=== PATIENT | female | born 1930 | race Caucasian/White ===

== ENCOUNTER 2017-02-25 12:32 | Outpatient (CLI) | payer MEDICARE ==
[~2017-02-25] VITALS: Ht 170.2 cm; Wt 64.6 kg
[2017-02-25] VITALS (35 sets, daily range): BP systolic 94–141; BP diastolic 49–82; PULSE 49–73; RESP 11–44; TEMP 97–98; O2SAT 85–100; Ht 170.2 cm; Wt 64.6 kg
[~2017-02-25 12:32] MED LIST: ASPI-557 PO; ATOR10TA64 PO; CARV3.123 PO; CLOP75TA PO; FURO20TA4 PO; LISI2.5T2 PO; NITR0.4T SL
--- NOTE | 2017-02-25 12:40 | NUR ---
Admit: the patient is assisted to ccu-1. She walks slowly with use of cane. She is accompanied by her .
[2017-02-25] MEDS ORDERED: MULT-933 PO (12:48)
[2017-02-25] MEDS ORDERED: NORMAL SALINE 1,000 ML IV SCH (13:15)
--- NOTE | 2017-02-25 13:15 | NUR ---
IV: site is started in the left wrist per x1 attempt.
[2017-02-25] MEDS ORDERED: COD1CAPS7 (13:30)
[2017-02-25 13:49] LABS: BASOPHILS % (AUTO) 0.5 % (0-2); EOSINOPHILS # (AUTO) 0.1 T/MM3 (0-0.5); EOSINOPHILS % (AUTO) 2.2 % (0-4); HCT - HEMATOCRIT 36.6 % (36-46); HGB - HEMOGLOBIN 11.8 GM/DL (12-16); IMMATURE GRANULOCYTE # (AUTO) 0.01 T/MM3 (0.00-0.03); IMMATURE GRANULOCYTE % (AUTO) 0.2 % (0.0-0.5); LYMPHOCYTES # (AUTO) 1.2 T/MM3 (1-4.8); LYMPHOCYTES % (AUTO) 19.3 % (23-45); MEAN CORPUSCULAR HGB 30.5 UUG (26-34); MEAN CORPUSCULAR HGB CONC(MCHC 32.2 GM/DL (31-37); MEAN CORPUSCULAR VOLUME 94.6 UM3 (80-100); MONOCYTES # (AUTO) 0.4 T/MM3 (0-0.8); MONOCYTES % (AUTO) 6.7 % (0-9.0); NEUTROPHILS #(AUTO)-ABSOLUTE 4.2 T/MM3 (1.8-7.7); NEUTROPHILS % (AUTO) 71.1 % (33-66); RED BLOOD COUNT 3.87 M/MM3 (4.00-5.20)
--- NOTE | 2017-02-25 13:50 | NUR ---
CM CM IN TO VISIT PATIENT, SHE IS A&O. NO FAMILY IS PRESENT IN THE ROOM. PATIENT PLANS TO DISCHARGE HOME, DENIES ANY DISCHARGE NEEDS. STATES THAT HER TAKES GOOD CARE OF HER. CM CONTACT INFORMATION PROVIDED. ISRAEL MORRISON. Addendum: 02/25/17 at 1351 by DIVYA SIMMONS RN Amended: Links added.
[2017-02-25 13:57] LABS: ANION GAP 9 MEQ/L (5-15); BUN/CREATININE RATIO 25 RATIO (6-26); CALCIUM 9.8 MG/DL (8.4-10.2); CHLORIDE 106 MEQ/L (98-107); CO2 - CARBON DIOXIDE 31 MEQ/L (22-30); GLOMERULAR FILTRATION RATE 52; GLUCOSE 106 MG/DL (65-110); POTASSIUM 3.9 MEQ/L (3.6-5); SODIUM 146 MEQ/L (134-144)
[2017-02-25] MEDS ORDERED: LIDOCAINE 1% (10mg/ml) 30ml SDV ONE (14:12)
[2017-02-25] MEDS ORDERED: HEPARIN 1,000units in NS 500ml BAG IV ONE (14:12)
[2017-02-25] MEDS ORDERED: NITROGLYCERIN 0.4 MG SUBLINGUAL TABLET SL PRN ×2 (14:15→16:30)
[2017-02-25] MEDS ORDERED: MIDAZOLAM 2mg/2ml INJECTION ONE (15:33)
[2017-02-25] MEDS ORDERED: VERAPAMIL 5mg/2ml INJECTION IV ONE (15:33)
[2017-02-25] MEDS ORDERED: FENTANYL 100mcg/2ml INJECTION ONE (15:33)
[2017-02-25] MEDS ORDERED: SALINE FLUSH 10ml SYRINGE ONE (15:34)
[2017-02-25] MEDS ORDERED: NITROGLYCERIN 50mg/10ml INJECTION IV ONE (15:34)
[2017-02-25] MEDS ORDERED: LORAZEPAM 2 MG/ML INJECTION IV PRN (16:30)
[2017-02-25] MEDS ORDERED: ONDANSETRON 4mg/2ml INJECTION IV PRN (16:30)
[2017-02-25] MEDS ORDERED: PROMETHAZINE 25 MG INJECTION IV PRN (16:30)
[2017-02-25] MEDS ORDERED: HYDROCODONE/APAP 5 mg/325 mg TABLET PO PRN (16:30)
[2017-02-25] MEDS ORDERED: MILK OF MAGNESIA 30 ML SUSP PO PRN (16:30)
[2017-02-25] MEDS ORDERED: METOCLOPRAMIDE 10mg/2ml INJECTION IV PRN (16:30)
[2017-02-25] MEDS ORDERED: ATROPINE 1 MG/ML VIAL IV PRN (16:30)
[2017-02-25] MEDS ORDERED: ACETAMINOPHEN 325 MG TABLET PO PRN (16:30)
[2017-02-25] MEDS ORDERED: MAG-AL + SIM LIQUID 30 ML UDC PO PRN (16:30)
[2017-02-25] MEDS ORDERED: BISACODYL 5 MG E.C. TABLET PO PRN (16:30)
[2017-02-25] MEDS ORDERED: BISACODYL 10 MG SUPPOSITORY RECTALLY PRN (16:30)
[2017-02-25] MEDS ORDERED: MORPHINE SULFATE 4 MG SYRINGE IV PRN ×2 (16:30)
[2017-02-25] MEDS ORDERED: LORAZEPAM 0.5 MG TABLET PO PRN (16:30)
--- NOTE | 2017-02-25 16:33 | NUR ---
Return Pt returned from Customer Service Engineer via CCU bed. Pt denies pain at this time. VSS. TR Band site intact, asymptomatic, strong pulse present.
--- NOTE | 2017-02-25 17:00 | NUR ---
Status: the patient is resting. Right radial wrist with a small amount of bloody drainage. Balloon is inflated. The patient denies pain. Shift assessment is done.
[2017-02-25] MEDS ORDERED: --POM--CARVEDILOL 3.125 MG TABLET PO SCH (17:30)
--- NOTE | 2017-02-25 18:11 | NUR ---
Nutrition: the patient is sitting up in her bed eating supper. She is encouraged to eat with her left hand due to procedure. The right hand remains on an arm board.
--- NOTE | 2017-02-25 19:15 | NUR ---
HR Pt HR noted to drop down 20's and 30's briefly (2.6 sec pause), then back up to 50's. SBP 90's to low 100's. Pt does state she has occasional dizziness for last 3 years. Yue Sargent alerted of above information. Reviewed current home meds. Coreg stopped. NS stopped after this bag. No other orders rec'd.
[2017-02-25] MEDS ORDERED: NORMAL SALINE 1,000 ML IV ONE (20:13)
[2017-02-25] MEDS ORDERED: --POM--ATORVASTATIN 10 MG TABLET PO SCH (22:00)
[2017-02-26] VITALS (12 sets, daily range): BP systolic 99–117; BP diastolic 51–64; PULSE 54–80; RESP 16–29; TEMP 98.4–98.8; O2SAT 89–93
--- NOTE | 2017-02-26 04:35 | NUR ---
Activity Pt up with assist of 1, gaitbelt and cane to BR. Pt ambulates slowly and is a bit unsteady on her feet, especially when she first stands up.
[2017-02-26 05:20] LABS: BASOPHILS % (AUTO) 0.5 % (0-2); EOSINOPHILS # (AUTO) 0.2 T/MM3 (0-0.5); EOSINOPHILS % (AUTO) 1.8 % (0-4); HCT - HEMATOCRIT 34.6 % (36-46); HGB - HEMOGLOBIN 11.1 GM/DL (12-16); IMMATURE GRANULOCYTE # (AUTO) 0.01 T/MM3 (0.00-0.03); IMMATURE GRANULOCYTE % (AUTO) 0.1 % (0.0-0.5); LYMPHOCYTES % (AUTO) 11.8 % (23-45); MEAN CORPUSCULAR HGB 30.5 UUG (26-34); MEAN CORPUSCULAR HGB CONC(MCHC 32.1 GM/DL (31-37); MEAN CORPUSCULAR VOLUME 95.1 UM3 (80-100); MEAN PLATELET VOLUME 10.3 UM3 (9.4-12.4); MONOCYTES # (AUTO) 0.5 T/MM3 (0-0.8); MONOCYTES % (AUTO) 5.4 % (0-9.0); NEUTROPHILS #(AUTO)-ABSOLUTE 6.7 T/MM3 (1.8-7.7); NEUTROPHILS % (AUTO) 80.4 % (33-66); RED BLOOD COUNT 3.64 M/MM3 (4.00-5.20); WBC - WHITE BLOOD COUNT 8.3 T/MM3 (4.5-11.0)
[2017-02-26 05:26] LABS: ANION GAP 10 MEQ/L (5-15); BUN/CREATININE RATIO 23 RATIO (6-26); CALCIUM 9.9 MG/DL (8.4-10.2); CHLORIDE 108 MEQ/L (98-107); CO2 - CARBON DIOXIDE 27 MEQ/L (22-30); GLOMERULAR FILTRATION RATE 52; GLUCOSE 103 MG/DL (65-110); SODIUM 145 MEQ/L (134-144)
--- NOTE | 2017-02-26 05:56 | NUR ---
Status Pt slept very well during night. pt denies pain, SOA, nausea. Pt right wrist dressing is CDI. Pt has strong right wrist radial pulse. Pt HR has been mostly 50's to 70's during night. Pt up with assist of 1, gaitbelt and cane during night. Pt AK CHIN. Bed alarm on, will continue to monitor.
[2017-02-26] MEDS ORDERED: CARVEDILOL 3.125 MG TABLET PO SCH (08:00)
[2017-02-26] MEDS ORDERED: --POM--CLOPIDOGREL 75 MG TABLET PO SCH (09:00)
[2017-02-26] MEDS ORDERED: --POM--FUROSEMIDE 20 MG TABLET PO SCH (09:00)
[2017-02-26] MEDS ORDERED: --POM--LISINOPRIL 2.5 MG TABLET PO SCH (09:00)
[2017-02-26] MEDS ORDERED: CLOPIDOGREL 75 MG TABLET PO SCH (09:00)
[2017-02-26] MEDS ORDERED: --POM--ASPIRIN *EC* 81mg TABLET PO SCH (09:00)
[2017-02-26] MEDS ORDERED: ASPIRIN *EC* 81mg TABLET PO SCH (09:00)
--- NOTE | 2017-02-26 09:13 | NUR ---
Activity: the patient is ambulated to the ccu exit and back to ccu-1. Some SOA is noted with exertion. She is assisted to bed and monitoring continues.
--- NOTE | 2017-02-26 10:00 | CVPROF ---
PERCUTANEOUS INTERVENTION DATE OF PROCEDURE February 25, [address] Hardeep Parker The patient is an 87-year-old lady with coronary artery disease and recent angiography showed high-grade RCA stenosis and was referred for percutaneous intervention. Informed consent was obtained after explaining the procedure and the potential risks to the patient and who agreed to proceed with the procedure. PROCEDURE 1. Right coronary artery PTCA and stent using 2.75 x 14 and 3.0 x 30 drug-eluting Resolute Integrity stents. This is a technically difficult study due to tortuosity and calcification of the RCA. TECHNIQUE She was prepped and draped in the usual sterile techniques. Conscious sedation was performed using Versed and fentanyl. 1% lidocaine was used for local anesthesia. Using modified Seldinger technique, arterial access was obtained into the right radial artery with placement of a 6-[place] arterial sheath. 5,000 units of heparin, 300 mcg of nitroglycerin, and 2.5 mg of verapamil were given through the arterial sheath. A 6-[place] [employer] right guide was advanced to the ostium of the right coronary artery. A Runthrough wire was used to cross the lesion into distal RCA. A 2.5 x 12 balloon was delivered to the mid lesion site where it was inflated up to 14 atmospheres. Next, we attempted to get a 3.0 x 30 drug-eluting Resolute Integrity stent to the lesion site. However, it would not cross the mid lesion and therefore we changed our stent for a 3.0 x 30 balloon which was delivered and inflation was performed up to 14 atmospheres. Next, we used a 2.5 x 30 balloon which was delivered distal to the previous balloon and inflated up to 14 atmospheres. Next, we advanced a 3.0 x 30 drug-eluting Resolute Integrity stent to the mid lesion site all the way to the proximal RCA and deployed by inflating the balloon to 14 atmospheres. Next, angiogram showed excellent results at this site. However, there was about 70% lesion remaining distal to the stent. Next, we used a 2.75 x 14 drug-eluting Resolute Integrity stent which was delivered to the distal lesion site where it was deployed by inflating the balloon to 14 atmospheres. Next, the angiogram showed excellent results with no residual stenosis. Also during the procedure we used two Runthrough wires for ralf wire to be able to deliver our balloon and stents to the lesion sites. IMPRESSION 1. Successful PTCA and stent of RCA using 2.75 x 14 and 3.0 x 30 drug-eluting Resolute Integrity stents. PLAN Will keep her on dual antiplatelet therapy and have her follow up in clinic. JOSÉ LUIS
--- NOTE | 2017-02-26 10:30 | NUR ---
DC: instrutctions reviewed with the patient. She is assisted with dressing. The IV site and monitors are dc.
--- NOTE | 2017-02-26 10:55 | NUR ---
Discharge: the patient is dc to home and is accompanied by her . She is sent with her dc instruction packet, home meds and belongings. She is assisted to her vehicle by RN and walks with a cane.
== END 2017-02-26 10:55 | disposition home or self-care (01) ==
LOC: CCU 12:32 → CATH 12:32
PROVIDERS: ATTEND Internal Medicine Cardiovascular Disease
DX: I25.10 Atherosclerotic heart disease of native coronary artery without angina pectoris (principal); I77.1 Stricture of artery; I70.213 Atherosclerosis of native arteries of extremities with intermittent claudication, bilateral legs; I42.9 Cardiomyopathy, unspecified; E78.2 Mixed hyperlipidemia; Z79.82 Long term (current) use of aspirin; Z79.02 Long term (current) use of antithrombotics/antiplatelets; Z79.899 Other long term (current) drug therapy
CPT/HCPCS: 36415; 80048; 85025; 93005; A9270; C1725; C1769; C1874; C1887; C1893; C9600; J1644; J2250; J3010; J3490; J7030; Q9967

== ENCOUNTER 2017-03-11 10:38 | Inpatient (IN) | payer MEDICARE ==
[~2017-03-11] VITALS: Ht 170.2 cm; Wt 66.8 kg
[2017-03-11] VITALS (28 sets, daily range): BP systolic 84–139; BP diastolic 46–73; PULSE 48–94; RESP 13–29; TEMP 97.8–98.2; O2SAT 92–100; Ht 170.2 cm; Wt 66.8 kg
[~2017-03-11 10:38] MED LIST changes: +COD1CAPS7; +MULT-933 PO
--- NOTE | 2017-03-11 10:45 | NUR ---
ADMIT PT ADMITTED TO ROOM 120 AT THIS TIME VIA WHEELCHAIR. PT REPOSITIONED SELF IN BED. FAMILY PRESENT UPON ADMIT. WILL CONTINUE TO MONITOR CLOSELY.
[2017-03-11] MEDS ORDERED: HEPARIN 1,000units in NS 500ml BAG IV ONE (11:20)
[2017-03-11] MEDS ORDERED: LIDOCAINE 1% (10mg/ml) 30ml SDV ONE (11:20)
[2017-03-11] MEDS: NORMAL SALINE 1,000 ML IV SCH ×2 (11:26→20:23)
[2017-03-11 11:37] LABS: BASOPHILS % (AUTO) 0.7 % (0-2); EOSINOPHILS # (AUTO) 0.2 T/MM3 (0-0.5); EOSINOPHILS % (AUTO) 2.7 % (0-4); HCT - HEMATOCRIT 36.6 % (36-46); HGB - HEMOGLOBIN 11.6 GM/DL (12-16); IMMATURE GRANULOCYTE # (AUTO) 0.01 T/MM3 (0.00-0.03); IMMATURE GRANULOCYTE % (AUTO) 0.2 % (0.0-0.5); LYMPHOCYTES # (AUTO) 1.3 T/MM3 (1-4.8); LYMPHOCYTES % (AUTO) 21.2 % (23-45); MEAN CORPUSCULAR HGB 30.3 UUG (26-34); MEAN CORPUSCULAR HGB CONC(MCHC 31.7 GM/DL (31-37); MEAN CORPUSCULAR VOLUME 95.6 UM3 (80-100); MEAN PLATELET VOLUME 9.8 UM3 (9.4-12.4); MONOCYTES # (AUTO) 0.4 T/MM3 (0-0.8); MONOCYTES % (AUTO) 6.3 % (0-9.0); NEUTROPHILS #(AUTO)-ABSOLUTE 4.1 T/MM3 (1.8-7.7); NEUTROPHILS % (AUTO) 68.9 % (33-66); RED BLOOD COUNT 3.83 M/MM3 (4.00-5.20)
--- NOTE | 2017-03-11 11:37 | HPPDOC ---
PRINCE LI PROGRAM SUPPORT CLERK 03/11/17 1120: HPI - Adult Date DATE: 03/11/17 TIME: 11:15 General Date of Admission Date of Admission: 03/11/17 Chief Complaint: chest pain History of Present Illness Bekah is a 87 year old female who is well known to Dr. Randall with a history of CAd and stent to the RCA 2 weeks ago, cardiomyopathy and HLD who is being admitted today for left heart cath with PCI to . Past Medical History Past Medical History Metabolic: hypercholesterolemia Cardiac: CAD Musculoskeletal: osteoarthritis Surgical History Cardiac: cardiac cath, cardiac stent Current Medications Home Meds Active Scripts Multivitamin (Multi-Day Vitamins) 1 Each Tablet, 1 TAB PO DAILY, #30 TAB Prov:PADDY RANDALL MD 02/25/17 Clopidogrel Bisulfate (Plavix) 75 Mg Tablet, 75 MG PO DAILY for 30 Days, #30 TAB 11 Refills Prov:PRINCE LI PROGRAM SUPPORT CLERK 01/07/17 Reported Medications Cod Liver Oil (Cod Liver Oil) 1 Each Capsule, QD 02/25/17 Aspirin (Aspir 81) 81 Mg Tablet., 1 TAB PO DAILY, #30 TAB 5 Refills 01/06/17 Nitroglycerin (Nitrostat) 0.4 Mg Tablet, 1 TAB SL Q5MIN, #100 TAB 3 Refills 01/06/17 Furosemide (Furosemide) 20 Mg Tablet, 1 TAB PO DAILY, TAB 01/06/17 Atorvastatin Calcium (Atorvastatin Calcium) 10 Mg Tablet, 1 TAB PO HS, TAB 01/06/17 Lisinopril (Lisinopril) 2.5 Mg Tablet, 2.5 MG PO DAILY for HYPERTENSION, TAB 01/06/17 Carvedilol (Carvedilol) 3.125 Mg Tablet, 1 TAB PO BIDWM, TAB BEST WITH FOOD. 01/06/17 Allergies: Coded Allergies: Sulfa (Sulfonamide Antibiotics) (Verified Allergy, Unknown, 03/11/17) Vaccines DOESN'T DO THIS HASN'T BEEN DOING THIS FOR A LONG TIME No Social History Smoking Status: Never smoker Current Occupational Status: retired Advance Directives: No DPOA for Healthcare Only Review of Systems Constitutional: DENIES: chills, dizziness, fever, syncope, weakness Eyes General: DENIES: pain ENMT Ears: DENIES: pain Sinuses: NOT FOUND: rhinorrhea Mouth/Throat: DENIES: sore throat Cardiovascular DENIES: chest pain, dyspnea on exertion, murmur, orthopnea, paroxysmal nocturnal dysp Rhythm/Rate: DENIES: irregular beat, palpitations Vascular: DENIES: pedal edema Pulmonary Respiratory: DENIES: cough, sputum GI Upper Abdomen: DENIES: nausea, vomiting Lower Abdomen: DENIES: blood in stool, diarrhea General: DENIES: dysuria Integumentary Skin: DENIES: rash, sores Neurological General: DENIES: headache, numbness, syncope, weakness Psychiatric Psychiatric: depression (teary and states she's tired of dealing with her health problems) All Other Systems All Other Systems: Reviewed (remainder of 10-point ROS Neg.) Physical Exam General General Nourishment: well nourished, well developed, apparent age Vital Signs Vital Signs Date Time Temp Pulse Resp B/P Pulse Ox O2 Delivery O2 Flow Rate FiO2 03/11/17 11:02 98.2 54 15 124/58 95 Room Air Height (Feet): 5 Height (Inches): 7.00 Telemetry Rhythm: Sinus Bradycardia, 1st Degree HB ENMT Brief: FOUND: mucosa moist Neck Brief: NOT FOUND: JVD, carotid bruits Respiratory Brief: FOUND: clear all bryan, equal bilaterally, NOT FOUND: rales , wheezes Cardiovascular (brief) Cardiac Brief: FOUND: regular rhythm, NOT FOUND: pedal edema, regular rate ( bradycardia) Abdomen (brief) Abdominal Brief: FOUND: BS normo active x4, soft, NOT FOUND: tender Integumentary (brief) Integumentary Brief: FOUND: dry, pink, warm Neurologic RN Documented GCS Eye Opening: Verbal: Motor: Total: Psychiatric (brief) FOUND: alert, oriented Psychiatric Psychiatric General: FOUND: crying Suicide/Homicide: NOT FOUND: suicidal ideation, suicidal plan Laboratory Laboratory Tests Test 03/11/17 11:22 EKG Sinus Bradycardia, 1st degree AV block Assessment & Plan Problems: (1) Atherosclerotic heart disease of [place] coronary artery without angina pectoris Status: Chronic Qualifiers: [place] vs. transplanted heart: [place] heart Qualified Codes: I25.10 - Atherosclerotic heart disease of [place] coronary artery without angina pectoris (2) Cardiomyopathy Status: Chronic Qualifiers: Cardiomyopathy type: unspecified Qualified Codes: I42.9 - Cardiomyopathy, unspecified Assessment & Plan: continue BB, routine monitoring (3) Mixed hyperlipidemia Status: Chronic Assessment & Plan: Continue Lipitor 10mg daily Code Status Full Code Hospital Course Summary Disclaimer The hospital course summary below is not to be considered part of the above Progress Note. PADDY RANDALL MD 03/14/17 1337: Past Medical History Current Medications Home Meds Active Scripts Multivitamin (Multi-Day Vitamins) 1 Each Tablet, 1 TAB PO DAILY, #30 TAB Prov:PADDY RANDALL MD 02/25/17 Clopidogrel Bisulfate (Plavix) 75 Mg Tablet, 75 MG PO DAILY for 30 Days, #30 TAB 11 Refills Prov:PRINCE LI PROGRAM SUPPORT CLERK 01/07/17 Reported Medications Cod Liver Oil (Cod Liver Oil) 1 Each Capsule, QD 02/25/17 Aspirin (Aspir 81) 81 Mg Tablet.dr, 1 TAB PO DAILY, #30 TAB 5 Refills 01/06/17 Nitroglycerin (Nitrostat) 0.4 Mg Tablet, 1 TAB SL Q5MIN, #100 TAB 3 Refills 01/06/17 Furosemide (Furosemide) 20 Mg Tablet, 1 TAB PO DAILY, TAB 01/06/17 Atorvastatin Calcium (Atorvastatin Calcium) 10 Mg Tablet, 1 TAB PO HS, TAB 01/06/17 Lisinopril (Lisinopril) 2.5 Mg Tablet, 2.5 MG PO DAILY for HYPERTENSION, TAB 01/06/17 Carvedilol (Carvedilol) 3.125 Mg Tablet, 1 TAB PO BIDWM, TAB BEST WITH FOOD. 01/06/17 Allergies: Coded Allergies: Sulfa (Sulfonamide Antibiotics) (Verified Allergy, Unknown, 03/11/17) Assessment & Plan Hospital Course Summary Hospital Course Summary After examining the patient I agree with the above assessment. I am involved in the formulation of the patient's plan of care. PRINCE LI APRN Mar 11, 2017 11:20 PADDY RANDALL MD Mar 14, 2017 13:37
[2017-03-11] MEDS ORDERED: NITROGLYCERIN 0.4 MG SUBLINGUAL TABLET SL SCH (11:45)
[2017-03-11 11:49] LABS: ANION GAP 14 MEQ/L (5-15); BUN/CREATININE RATIO 25 RATIO (6-26); CALCIUM 9.7 MG/DL (8.4-10.2); CHLORIDE 105 MEQ/L (98-107); CO2 - CARBON DIOXIDE 27 MEQ/L (22-30); GLOMERULAR FILTRATION RATE 52; GLUCOSE 103 MG/DL (65-110); POTASSIUM 4.2 MEQ/L (3.6-5); SODIUM 146 MEQ/L (134-144)
--- NOTE | 2017-03-11 12:21 | NUR ---
CM IN TO VISIT PATIENT, SHE IS A&O. NO FAMILY IS PRESENT. PATIENT WILL DISCHARGE HOME WHERE SHE LIVES WITH HER , SHE GETS TEARY AT TIMES WHEN VISITING WITH HER. 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 WE TALKED ABOUT HER DIET QUESTIONS AND EXERCISE GUIDELINES. SHE DENIES DISCHARGE NEEDS. CM CONTACT INFORMATION GIVEN. [employer]AMI[employer] CAGE SCORE IS 3, NO FURTHER FOLLOW UP IS NEEDED. Addendum: 03/11/17 at 1225 by DIVYA SIMMONS RN Amended: Links added.
--- NOTE | 2017-03-11 12:45 | NUR ---
TO MANAGER SEMICONDUCTOR PT TRANSPORTED TO MANAGER SEMICONDUCTOR AT THIS TIME VIA CART AND ACCOMPANIED BY STAFF. PT VOIDED PRIOR TO TRANSFER. VITAL SIGNS STABLE ON ROOM AIR. INFORMED CONSENT OBTAINED. WILL CONTINUE TO MONITOR.
[2017-03-11] MEDS ORDERED: FENTANYL 100mcg/2ml INJECTION ONE (12:57)
[2017-03-11] MEDS ORDERED: MIDAZOLAM 2mg/2ml INJECTION ONE (12:57)
[2017-03-11] MEDS ORDERED: VERAPAMIL 5mg/2ml INJECTION IV ONE (12:58)
[2017-03-11] MEDS ORDERED: NITROGLYCERIN 50mg/10ml INJECTION IV ONE (12:58)
[2017-03-11] MEDS ORDERED: IOHEXOL 350mg/ml 200ml BOTTLE ONE (13:01)
[2017-03-11] MEDS ORDERED: MORPHINE SULFATE 4 MG SYRINGE IV PRN ×2 (13:30)
[2017-03-11] MEDS ORDERED: LORAZEPAM 0.5 MG TABLET PO PRN (13:30)
[2017-03-11] MEDS ORDERED: MAG-AL + SIM LIQUID 30 ML UDC PO PRN (13:30)
[2017-03-11] MEDS ORDERED: NITROGLYCERIN 0.4 MG SUBLINGUAL TABLET SL PRN (13:30)
[2017-03-11] MEDS ORDERED: HYDROCODONE/APAP 5 mg/325 mg TABLET PO PRN (13:30)
[2017-03-11] MEDS ORDERED: ACETAMINOPHEN 325 MG TABLET PO PRN (13:30)
[2017-03-11] MEDS ORDERED: LORAZEPAM 2 MG/ML INJECTION IV PRN (13:30)
[2017-03-11] MEDS ORDERED: ATROPINE 1 MG/ML VIAL IV PRN (13:30)
[2017-03-11] MEDS ORDERED: ONDANSETRON 4mg/2ml INJECTION IV PRN (13:30)
[2017-03-11] MEDS ORDERED: METOCLOPRAMIDE 10mg/2ml INJECTION IV PRN (13:30)
[2017-03-11] MEDS ORDERED: MILK OF MAGNESIA 30 ML SUSP PO PRN (13:30)
[2017-03-11] MEDS ORDERED: PROMETHAZINE 25 MG INJECTION IV PRN (13:30)
[2017-03-11] MEDS ORDERED: BISACODYL 5 MG E.C. TABLET PO PRN (13:30)
[2017-03-11] MEDS ORDERED: BISACODYL 10 MG SUPPOSITORY RECTALLY PRN (13:30)
--- NOTE | 2017-03-11 13:36 | NUR ---
RETURN PT RETURNED TO ROOM 120 AT THIS TIME VIA CART. PT TRANSFERRED SELF FROM CART TO BED. VITAL SIGN STABLE ON ROOM AIR. NO S/S OF BLEEDING NOTED FROM RIGHT WRIST. BED ALARM ON. WILL CONTINUE TO MONITOR.
--- NOTE | 2017-03-11 14:50 | CVPROF ---
DATE OF PROCEDURE March 11, [address] Hardeep Parker The patient is a pleasant 87-year-old lady with history of coronary artery disease and recent angiography showed high-grade obtuse marginal stenosis and was referred for percutaneous intervention. Informed consent was obtained after explaining the procedure and the potential risks to the patient who agreed to proceed with the procedure. PROCEDURE 1. Primary stent of the obtuse marginal using a 2.25 x 18 drug-eluting Resolute Integrity stent. TECHNIQUE She was prepped and draped in the usual sterile techniques. 1% lidocaine was used for local anesthesia. Using modified Seldinger technique, arterial access was obtained into the right radial artery with placement of a 6-[place] arterial sheath. 5,000 units of heparin, 300 mcg of nitroglycerin, and 2.5 mg of verapamil were given through the arterial sheath. Conscious sedation was performed using Versed and fentanyl. A 6-Spanish [employer] left guide was advanced to the ostium of left main. A Runthrough wire was used to cross the lesion into distal marginal. A 2.25 x 18 drug-eluting Resolute Integrity stent was delivered to the lesion site over the wire and deployed by inflating the balloon to 16 atmospheres. Next, angiogram showed excellent results with no residual stenosis. The patient tolerated the procedure well with no complications. IMPRESSION 1. Successful primary stent of obtuse marginal using a 2.25 x 18 drug-eluting Resolute Integrity stent. PLAN Will keep her on dual antiplatelet therapy at least for year and continue risk modification. [facility]
[2017-03-11 14:54] LABS: ALBUMIN 3.8 G/DL (3.5-5.0); ALBUMIN/GLOBULIN RATIO 1.4 RATIO (1.1-2.2); ALKALINE PHOSPHATASE 71 U/L (38-126); ALT (SGPT) 35 U/L (9-52); AST (SGOT) 31 U/L (14-36); TOTAL PROTEIN 6.6 G/DL (6.3-8.2)
--- NOTE | 2017-03-11 15:57 | NUR ---
BLEEDING 2CC OF AIR REMOVED FROM TR BAND AT THIS TIME AFTER SOME AIR HAD BEEN REMOVED PREVIOUSLY. MINIMAL OOZING OF BLOOD NOTED FROM RIGHT WRIST ACCESS SITE. THIS RN REINSTILLED 2CC OF AIR INTO TR BAND. NO FURTHER SIGNS OF BLEEDING NOTED. NO HEMATOMA PRESENT IN SURROUNDING TISSUES. PT'S HOB ELEVATED AND PT EATING. VITAL SIGNS REMAIN STABLE ON ROOM AIR. WILL CONTINUE TO MONITOR CLOSELY.
[2017-03-11] MEDS: --POM--CARVEDILOL 3.125 MG TABLET PO SCH (17:04)
--- NOTE | 2017-03-11 19:37 | NUR ---
DRESSING TR BAND REMOVED AT THIS TIME AFTER NO S/S OF BLEEDING NOTED AND ALL AIR REMOVED FROM RIGHT TRANSRADIAL BAND. VITAL SIGNS REMAIN STABLE ON ROOM AIR. A GAUZE/TEGADERM DRESSING APPLIED TO RIGHT WRIST AND SPLINT REMAINS IN PLACE TO RIGHT WRIST. WILL CONTINUE TO MONITOR CLOSELY.
[2017-03-11] MEDS: --POM--ATORVASTATIN 10 MG TABLET PO SCH (20:25)
[2017-03-12] VITALS (7 sets, daily range): BP systolic 103–143; BP diastolic 54–66; PULSE 53–65; RESP 16–23; TEMP 98.2–98.7; O2SAT 95–98
--- NOTE | 2017-03-12 04:08 | NUR ---
Chart Check 24 hour chart check completed
[2017-03-12 05:28] LABS: BASOPHILS % (AUTO) 0.5 % (0-2); EOSINOPHILS # (AUTO) 0.2 T/MM3 (0-0.5); EOSINOPHILS % (AUTO) 4.1 % (0-4); HCT - HEMATOCRIT 31.8 % (36-46); HGB - HEMOGLOBIN 10.2 GM/DL (12-16); IMMATURE GRANULOCYTE # (AUTO) 0.01 T/MM3 (0.00-0.03); IMMATURE GRANULOCYTE % (AUTO) 0.2 % (0.0-0.5); LYMPHOCYTES # (AUTO) 1.3 T/MM3 (1-4.8); LYMPHOCYTES % (AUTO) 21.7 % (23-45); MEAN CORPUSCULAR HGB 30.8 UUG (26-34); MEAN CORPUSCULAR HGB CONC(MCHC 32.1 GM/DL (31-37); MEAN CORPUSCULAR VOLUME 96.1 UM3 (80-100); MEAN PLATELET VOLUME 10.3 UM3 (9.4-12.4); MONOCYTES # (AUTO) 0.4 T/MM3 (0-0.8); MONOCYTES % (AUTO) 6.8 % (0-9.0); NEUTROPHILS #(AUTO)-ABSOLUTE 3.9 T/MM3 (1.8-7.7); NEUTROPHILS % (AUTO) 66.7 % (33-66); RED BLOOD COUNT 3.31 M/MM3 (4.00-5.20); WBC - WHITE BLOOD COUNT 5.8 T/MM3 (4.5-11.0)
[2017-03-12 05:45] LABS: ANION GAP 8 MEQ/L (5-15); BUN/CREATININE RATIO 26 RATIO (6-26); CALCIUM 8.7 MG/DL (8.4-10.2); CHLORIDE 110 MEQ/L (98-107); CO2 - CARBON DIOXIDE 26 MEQ/L (22-30); GLOMERULAR FILTRATION RATE 52; GLUCOSE 88 MG/DL (65-110); POTASSIUM 4.3 MEQ/L (3.6-5); SODIUM 144 MEQ/L (134-144)
--- NOTE | 2017-03-12 07:16 | NUR ---
SUMMARY ALERT AND ORIENTED X3. SEEMED TO SLEEP WELL. TR SITE TO RIGHT SIDE IS DRY AND INTACT. NO EVIDENCE OF HEMATOMA. UP WITH 1 ASSIST WITH A CANE AND GAIT BELT. UNSTEADY ON FEET. BED ALARM ON. HAS USED CALL LIGHT AND RESPONDS APPROPRIATELY. NO C/O CHEST PAIN, V.S.S.
[2017-03-12] MEDS ORDERED: ASPIRIN *EC* 81mg TABLET PO SCH (09:00)
[2017-03-12] MEDS ORDERED: CLOPIDOGREL 75 MG TABLET PO SCH (09:00)
[2017-03-12] MEDS: --POM--CLOPIDOGREL 75 MG TABLET PO SCH (09:45)
[2017-03-12] MEDS: --POM--ASPIRIN *EC* 81mg TABLET PO SCH (09:46)
[2017-03-12] MEDS: --POM--FUROSEMIDE 20 MG TABLET PO SCH (10:01)
[2017-03-12] MEDS: --POM--LISINOPRIL 2.5 MG TABLET PO SCH (10:01)
[2017-03-12] MEDS: --POM--CARVEDILOL 3.125 MG TABLET PO SCH (10:01)
[2017-03-12] MEDS: NORMAL SALINE 1,000 ML IV SCH (10:29)
--- NOTE | 2017-03-12 14:33 | NUR ---
CM CM IN TO VISIT WITH PT. HER SPOUSE IS PRESENT. PT PLANS TO DC HOME. SHE DENIES DC NEEDS. SHE IS GIVEN UPDATED CM CONTACT INFORMATION.
--- NOTE | 2017-03-12 17:15 | PNPDOC ---
PRINCE LI STRIPE MARKER 03/12/17 1715: Subjective Date DATE: 03/12/17 TIME: 17:08 Subjective Bekah is in her room on surgical, she denies cardiac complaints Objective Vital Signs Vital signs Vital Signs 03/12/17 03/12/17 03/12/17 03/12/17 05:15 07:32 07:37 12:00 Temp 98.2 98.3 98.3 Pulse 54 55 53 61 Resp 16 16 16 B/P 103/54 110/54 117/57 Pulse Ox 96 96 98 O2 Delivery Room Air Room Air Room Air Telemetry Rhythm: Sinus Bradycardia, 1st Degree HB Height (Feet): 5 Height (Inches): 7.00 Weight (Kilograms): 65.600 General Alert, Orientated x 3 ENMT (Brief) mucosa moist Neck (Brief) NOT FOUND: JVD, carotid bruits Respiratory (Brief) clear all bryan, equal bilaterally, NOT FOUND: rales, wheezes Cardiovascular (Brief) regular rate, regular rhythm, NOT FOUND: click, gallop, murmur, pedal edema, rub Abdomen (Brief) BS normo active x4, soft, NOT FOUND: tender Integumentary (Brief) dry, pink, warm Psychiatric (Brief) alert, attentive, oriented Laboratory Laboratory Laboratory Tests Test 03/11/17 11:12 03/11/17 11:22 03/12/17 04:32 Turbidity < 20 < 20 < 20 Total Bilirubin 0.60MG/DL Conjugated Bilirubin 0.00MG/DL Unconjugated Bilirubin 0.10MG/DL Icterus Index < 2 < 2 < 2 Aspartate Amino Transf (AST/SGOT) 31U/L Alanine Aminotransferase (ALT/SGPT) 35U/L Alkaline Phosphatase 71U/L Total Protein 6.6G/DL Albumin 3.8G/DL Globulin 2.8G/DL Albumin/Globulin Ratio 1.4RATIO Chemistry Specimen Hemolysis < 15 < 15 < 15 White Blood Count 6.0T/MM3 5.8T/MM3 Red Blood Count 3.83M/MM3 3.31M/MM3 Hemoglobin 11.6GM/DL 10.2GM/DL Hematocrit 36.6% 31.8% Mean Corpuscular Volume 95.6UM3 96.1UM3 Mean Corpuscular Hemoglobin 30.3UUG 30.8UUG Mean Corpuscular Hemoglobin Concent 31.7GM/DL 32.1GM/DL RDW Standard Deviation 44.0FL 44.5FL Platelet Count 267T/MM3 244T/MM3 Mean Platelet Volume 9.8UM3 10.3UM3 Immature Granulocyte % (Auto) 0.2% 0.2% Neutrophils (%) (Auto) 68.9% 66.7% Lymphocytes (%) (Auto) 21.2% 21.7% Monocytes (%) (Auto) 6.3% 6.8% Eosinophils (%) (Auto) 2.7% 4.1% Basophils (%) (Auto) 0.7% 0.5% Absolute Immature Granulocyte (auto 0.01T/MM3 0.01T/MM3 Absolute Neutrophils (auto) 4.1T/MM3 3.9T/MM3 Absolute Lymphocytes (auto) 1.3T/MM3 1.3T/MM3 Absolute Monocytes (auto) 0.4T/MM3 0.4T/MM3 Absolute Eosinophils (auto) 0.2T/MM3 0.2T/MM3 Absolute Basophils (auto) 0.0T/MM3 0.0T/MM3 Sodium Level 146MEQ/L 144MEQ/L Potassium Level 4.2MEQ/L 4.3MEQ/L Chloride Level 105MEQ/L 110MEQ/L Carbon Dioxide Level 27MEQ/L 26MEQ/L Anion Gap 14MEQ/L 8MEQ/L Blood Urea Nitrogen 25.0MG/DL 26.0MG/DL Creatinine 1.0MG/DL 1.0MG/DL Glomerular Filtration Rate Calc 52 52 BUN/Creatinine Ratio 25RATIO 26RATIO Glucose Level 103MG/DL 88MG/DL Calculated Osmolality 285MOSM/KG 281MOSM/KG Calcium Level 9.7MG/DL 8.7MG/DL Laboratory Tests 03/12/17 04:32 Laboratory Tests 03/12/17 04:32 Medications Current Medications Sodium Chloride (Normal Saline IV) 1,000 ml @ 75 mls/hr [id number] IV Last administered on 03/12/17t 10:29; Start 03/11/17 at 09:15 Heparin Sodium/ Sodium Chloride (HEPARIN 1,000units in NS 500ml) 1,000 unit STK- MED ONCE IV ; Start 03/11/17 at 11:20; Stop 03/11/17 at 11:21; Status DC Lidocaine HCl (Xylocaine 1%) 300 mg STK-MED ONCE .ROUTE ; Start 03/11/17 at 11: 20; Stop 03/11/17 at 11:21; Status DC Atorvastatin Calcium (LIPITOR 10 mg) 10 mg HS PO Last administered on t 20:25; Start 03/11/17 at 22:00 Carvedilol (Coreg) 3.125 mg BIDWM PO ; Start 03/11/17 at 17:30 Furosemide (Lasix) 20 mg DAILY PO ; Start 03/12/17 at 09:00 Lisinopril (Prinivil) 2.5 mg DAILY PO ; Start 03/12/17 at 09:00 Fentanyl (Fentanyl) 100 mcg STK-MED ONCE .ROUTE ; Start 03/11/17 at 12:57; Stop 03/11/17 at 12:58; Status DC Midazolam HCl (Versed) 2 mg STK-MED ONCE .ROUTE ; Start 03/11/17 at 12:57; Stop 03/11/17 at 12:58; Status DC Verapamil HCl (Verapamil) 5 mg STK-MED ONCE IV ; Start 03/11/17 at 12:58; Stop 03/11/17 at 12:59; Status DC Nitroglycerin (Nitroglycerin) 50 mg STK-MED ONCE IV ; Start 03/11/17 at 12:58; Stop 03/11/17 at 12:59; Status DC Heparin Sodium (Porcine) (Heparin Bolus) 10,000 unit STK-MED ONCE IV ; Start at 12:58; Stop 03/11/17 at 12:59; Status DC Iohexol (Omnipaque) 1 bottle STK-MED ONCE .ROUTE ; Start 03/11/17 at 13:01; Stop 03/11/17 at 13:02; Status DC Aspirin (Ecotrin) 81 mg DAILY PO ; Start 03/12/17 at 09:00; Status Cancel Clopidogrel Bisulfate (Plavix) 75 mg DAILY PO ; Start 03/12/17 at 09:00; Status Cancel Atropine Sulfate (ATROPINE 1mg INJ) 0.5 mg Q5M PRN IV pulse < 40 bmp AND symptomatic; Start 03/11/17 at 13:30 Acetaminophen (Tylenol Regular Strength) 325-650 mg Q5H PRN PO PAIN; Start at 13:30 Morphine Sulfate (Morphine) 2-4 mg Q5MIN PRN IV ANGINA; Start 03/11/17 at 13:30 Acetaminophen/ Hydrocodone Bitart ([place] 5/325) 1-2 tabs Q5H PRN PO PAIN; Start 03/11/17 at 13:30 Promethazine HCl (Phenergan) 12.5-25 mg Q6H PRN IV NAUSEA &/OR VOMITING; Start 03/11/17 at 13:30 Nitroglycerin (Nitrostat) 0.4 mg Q5MIN PRN SL ANGINA; Start 03/11/17 at 13:30 Magnesium Hydroxide (Mom) 30 ml DAILY PRN PO CONSTIPATION; Start 03/11/17 at 13 :30 Bisacodyl (Dulcolax) 5-10 mg DAILY PRN PO CONSTIPATION; Start 03/11/17 at 13:30 Al Hydroxide/Mg Hydroxide (Maalox) 30 ml Q3H PRN PO INDIGESTION; Start at 13:30 Lorazepam (Ativan) 0.5-1 mg Q4H PRN IV ANXIETY; Start 03/11/17 at 13:30 Metoclopramide HCl (REGLAN Inj) 5-10 mg Q6H PRN IV NAUSEA &/OR VOMITING; Start 03/11/17 at 13:30 Ondansetron HCl (Zofran) 4 mg Q6H PRN IV NAUSEA &/OR VOMITING; Start 03/11/17 at 13:30 Assessment & Plan Problems: (1) Sinus pause Status: Acute Assessment & Plan: hold betablocker, continue to monitor (2) Atherosclerotic heart disease of [place] coronary artery without angina pectoris Status: Chronic Qualifiers: [place] vs. transplanted heart: [place] heart Qualified Codes: I25.10 - Atherosclerotic heart disease of [place] coronary artery without angina pectoris (3) Cardiomyopathy Status: Chronic Qualifiers: Cardiomyopathy type: unspecified Qualified Codes: I42.9 - Cardiomyopathy, unspecified Assessment & Plan: continue BB, routine monitoring (4) Mixed hyperlipidemia Status: Chronic Assessment & Plan: Continue Lipitor 10mg daily Plan/Intensity of Service 03/12/17 Patient wishes to be a DNR. Sinus pause: hold betablocker, continue to monitor PADDY ALMAGUER MD 03/14/17 1344: Assessment & Plan Plan/Intensity of Service After examining the patient I agree with the above assessment. I am involved in the formulation of the patient's plan of care. PRINCE LI STRIPE MARKER Mar 12, 2017 17:15 PADDY ALMAGUER MD Mar 14, 2017 13:44
--- NOTE | 2017-03-12 18:20 | NUR ---
END OF SHIFT REPORT PATIENT A/OX3. ROOM AIR. VITAL SIGNS EXCEPT HR HAVE BEEN STABLE. AT TIMES PT IS AT 33 FOR HR. ROSINA IS AWARE OF THIS. PATIENT HAS BEEN HAVING 1-2 SECOND PAUSES FREQUENTLY. PATIENT CHANGED HER CODE STATUS TO DNR TODAY UNDER PRINCE LI APRN. DENIES N/V, CHEST PAIN, AND SOA. PT UP WITH ASSIST X1-2 GB AND CANE. PT UNSTEADY ON HER FEET. PT HAS TEARFUL DURING THE SHIFT AND IS FLAT AFFECTED. ADEQUATE URINARY OUTPUT. NO BM DURING THE SHIFT. WILL CONTINUE TO MONITOR.
[2017-03-12] MEDS: --POM--ATORVASTATIN 10 MG TABLET PO SCH (21:27)
[2017-03-13] MEDS: NORMAL SALINE 1,000 ML IV SCH ×2 (00:28→14:35)
[2017-03-13 01:15] LABS: LDL CHOLESTEROL,CALCULATED 93.6 (66-159); RISK FACTOR 3.4 RATIO (0-4.0); VLDL CHOLESTEROL 22.4 MG/DL (0-28)
--- NOTE | 2017-03-13 05:55 | NUR ---
SHIFT SUMMARY PATIENT IS ALERT AND ORIENTED X3 THIS SHIFT. VITAL SIGNS ARE STABLE ON ROOM AIR. PATIENT AMBULATES WELL WITH STAND BY AND CANE. PATIENT HAS ALTERNATED BETWEEN A FLAT AFFECT AND WEEPY THIS SHIFT. PATIENT DID NOT WANT TO STAY ANOTHER NIGHT, BUT SEEMS TO UNDERSTAND THE REASONING. PATIENT IS EXPECTED TO DISCHARGE TODAY. WILL CONTINUE TO MONITOR.
[2017-03-13 07:32] VITALS: BP 136/83; PULSE 61; RESP 33; TEMP 98.1; O2SAT 98
[2017-03-13] MEDS: --POM--LISINOPRIL 2.5 MG TABLET PO SCH (09:00)
[2017-03-13] MEDS: --POM--FUROSEMIDE 20 MG TABLET PO SCH (09:00)
[2017-03-13] MEDS: --POM--ASPIRIN *EC* 81mg TABLET PO SCH (09:00)
[2017-03-13] MEDS: --POM--CLOPIDOGREL 75 MG TABLET PO SCH (09:00)
--- OUTSIDE RECORDS SUMMARY | 2017-03-13 10:57 | XMS REPORT ---
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 Assessment Low back pain M54.5 Active Problem Abdominal pain, unspecified site 789.00 Active Problem Muscular wasting and disuse atrophy, 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 Problem Urinary tract infection, site not specified 599.0 Active Problem Abdominal or pelvic swelling, mass or lump, unspecified site 789.30 Active Problem Calculus of kidney 592.0 Active Assessment Shortness of breath R06.02 Active Assessment Change in bowel habit R19.4 Active Problem Other specified symptom associated with female genital organs 625.8 Active Assessment 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 Active Problem Other abnormal blood chemistry 790.6 Active Problem Microscopic hematuria 599.72 Active Problem Unspecified anemia 285.9 Active Problem Hematuria, unspecified 599.70 Active Problem Lumbago 724.2 Active Problem 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 Assessment Other fatigue R53.83 Active Problem Sciatica 724.3 Active Problem Chills (without fever) 780.64 Active Problem Other general symptoms 780.99 Active Problem Chest pain, unspecified 786.50 Active Problem Elevated blood pressure reading without diagnosis of hypertension 796.2 Active Medications Medication Code System Code Instructions Start Date End Date Status Dosage Cod Liver Oil [facility] [address]-62 Orally not defined Escitalopram Oxalate [facility] [address]-37 10 MG Orally Once a day March 12, 2016 1 tablet Glucosamine [facility] [address]-02 500 MG Orally Once a day 1 capsule with a meal Womens 50+ Multi Vitamin/Min [facility] [address] Orally not defined Procedures Procedure Coding System Code Date COMPLETE CBC W/AUTO DIFF WBC CPT-4 08001 March 12, 2016 COMPREHEN METABOLIC PANEL CPT-4 38883 March 12, 2016 ASSAY THYROID STIM HORMONE CPT-4 28142 March 12, 2016 Office Visit, Est Pt., Level 3 CPT-4 14083 March 12, 2016 URINALYSIS, AUTO, W/O SCOPE CPT-4 77614 March 12, 2016 NATRIURETIC PEPTIDE CPT-4 51548 March 12, 2016 URINE BACTERIA CULTURE CPT-4 73531 March 12, 2016 URINE CULTURE/COLONY COUNT CPT-4 71199 March 12, 2016 Vital Signs Date/Time: March 12, 2016 BMI 22.55 Index Weight 144.0 lbs Height 67 in Blood Pressure Diastolic 80 mm Hg Blood Pressure Systolic 138 mm Hg Temperature 97.8 F Cardiac Monitoring Heart Rate 73 /min Results Name Result Date Reference Range Unit Abnormality Flag Urinalysis (UA) (GM) ----PRO TRACE 20160312 ----pH 6.0 20160312 ----BLO TRACE-INTACT 20160312 ----SG 1.015 20160312 ----KET NEG 20160312 ----NIT NEG 20160312 ----COLOR YELLOW 20160312 ----URO 0.2 20160312 ----CLARITY CLOUDY 20160312 ----GLU NEG 20160312 ----DOMONIQUE 2+ 20160312 ----NILTON NEG 20160312 B TYPE NATRIURETIC PEPTIDE (BNP) ----B TYPE NATRIURETIC PEPTIDE (BNP) 28 20160312 <100 pg/mL N Summary Purpose eClinicalWorks Submission
--- OUTSIDE RECORDS SUMMARY | 2017-03-13 10:58 | XMS REPORT ---
Author Ashli Maldonado [facility] [employer] Address Unknown Phone Unavailable Care Team Providers Care Medical Technologist Name Role Phone Ashli Rizzo CP Unavailable Allergies No Known Allergies Problems Problem Type Condition ICD-9 Code Onset Dates Condition Status Problem Chills (without fever) 780.64 Active Problem Fatigue 780.79 Active Problem Other general symptoms 780.99 Active Problem Other abnormal blood chemistry 790.6 Active Problem Microscopic hematuria 599.72 Active Problem Hematuria, unspecified 599.70 Active Problem Abdominal pain, unspecified site 789.00 Active Problem 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 Problem Muscular wasting and disuse atrophy, 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 Problem Urinary tract infection, site not specified 599.0 Active Problem Lumbago 724.2 Active Problem 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 Assessment Special screening for malignant neoplasms, intestine, unspecified V76.50 Active Problem Chest pain, unspecified 786.50 Active Problem Sciatica 724.3 Active Problem Elevated blood pressure reading without diagnosis of hypertension 796.2 Active Medications No Known Medications Procedures Procedure Coding System Code Date TEST FOR BLOOD, FECES CPT-4 07414 Jan 07, 2014 Vital Signs Date/Time: Dec 22, 2013 Weight 123.8 lbs Height 67 inches Blood Pressure Diastolic 80 mm Hg Blood Pressure Systolic 136 mm Hg Temperature 97.8 F Cardiac Monitoring Heart Rate 77 Beats per Minute Results Occult Blood, Feces (GM) Result(- ) Negative Day 3(- ) 12/30/13 Day 1(- ) 12/27/13 Result(- ) Negative Day 2(- ) 12/28/13 Result(- ) Negative Summary Purpose [employer]ClinicalWorks Submission
--- OUTSIDE RECORDS SUMMARY | 2017-03-13 10:58 | XMS REPORT ---
Author Ashli Maldonado Organization [employer] Address Unknown Phone Unavailable Care Team Providers Care Tattooer Name Role Phone Ashli Rizzo CP Unavailable [...] tract infection, site not specified 599.0 Active Assessment Abdominal pain, unspecified site 789.00 Active Problem Lumbago 724.2 Active Problem 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 Assessment Hematuria, unspecified 599.70 Active Problem Chest pain, unspecified 786.50 Active Problem Sciatica 724.3 Active Problem Elevated blood pressure reading without diagnosis of hypertension 796.2 Active Medications No Known Medications Vital Signs Date/Time: Dec 22, 2013 Weight 123.8 lbs Height 67 inches Blood Pressure Diastolic 80 mm Hg Blood Pressure Systolic 136 mm Hg Temperature 97.8 F Cardiac Monitoring Heart Rate 77 Beats per Minute Results No Known Results Summary Purpose eClinicalWorks Submission
--- OUTSIDE RECORDS SUMMARY | 2017-03-13 10:58 | XMS REPORT ---
Author Ashli Maldonado [facility] [employer] Address Unknown Phone Unavailable Care Team Providers Care Smelter Liner Name Role Phone Ashli Rizzo CP Unavailable Allergies No Known Allergies Problems Problem Type Condition ICD-9 Code Onset Dates Condition Status Problem Abdominal pain, unspecified site 789.00 Active Problem Muscular wasting and disuse atrophy, 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 Problem Urinary tract infection, site not specified 599.0 Active Problem Abdominal or pelvic swelling, mass or lump, unspecified site 789.30 Active Problem Calculus of kidney 592.0 Active Problem Other specified symptom associated with female genital organs 625.8 Active Problem Other abnormal blood chemistry 790.6 Active Problem Microscopic hematuria 599.72 Active Problem Unspecified anemia 285.9 Active Problem Hematuria, unspecified 599.70 Active Problem Lumbago 724.2 Active Problem 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 Assessment Other specified symptom associated with female genital organs 625.8 Active Problem Sciatica 724.3 Active Problem Chills (without fever) 780.64 Active Problem Other general symptoms 780.99 Active Problem Chest pain, unspecified 786.50 Active Problem Fatigue 780.79 Active Problem Elevated blood pressure reading without diagnosis of hypertension 796.2 Active Problem 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
--- OUTSIDE RECORDS SUMMARY | 2017-03-13 10:58 | XMS REPORT | Continuity of Care Document ---
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 12/09/2013 F 280.9 IRON DEFIC ANEMIA NOS 12/09/2013 F 564.00 UNSPEC CONSTIPATION 12/09/2013 F 584.9 ACUTE RENAL FAILURE, UNSPECIFIED 12/09/2013 F 599.0 URIN TRACT INFECTION NOS 12/09/2013 F 733.00 OSTEOPOROSIS NOS 12/09/2013 A 789.00 ABDOMINAL PAIN, UNSPECIFIED SITE 12/09/2013 F 995.92 SEVERE SEPSIS 12/28/2013 Ashli Rizzo MD Final 593.2 ACQUIRED KIDNEY CYST 12/28/2013 Ashli Rizzo MD Admitting 599.72 MICROSCOPIC HEMATURIA 12/28/2013 Ashli Rizzo MD 789.00 ABDOMINAL PAIN-SITE NOS 12/28/2013 Ashli Rizzo MD Final 790.6 ABN BLOOD CHEMISTRY NEC 12/28/2013 Ashli Rizzo MD Admitting 789.00 ABDOMINAL PAIN-SITE NOS 12/28/2013 Ashli Rizzo MD Admitting 599.72 MICROSCOPIC HEMATURIA 01/27/2014 Admitting 599.70 HEMATURIA NOS 01/27/2014 Admitting 789.00 ABDOMINAL PAIN-SITE NOS 02/09/2014 Admitting 599.70 HEMATURIA NOS 02/09/2014 Admitting 789.00 ABDOMINAL PAIN-SITE NOS 04/15/2014 Ashli Rizzo MD Admitting 592.0 KIDNEY CALCULUS 04/15/2014 Ashli Rizzo MD Final 592.1 URETERAL CALCULUS 04/15/2014 Ashli Rizzo MD Admitting 592.0 KIDNEY CALCULUS 04/15/2014 Loyd Aguilar Jr, MD Final 285.9 ANEMIA NOS 04/15/2014 Loyd Aguilar Jr, MD Final 592.0 KIDNEY CALCULUS 04/15/2014 Loyd Aguilar Jr, MD Final 593.9 RENAL/URETER DISORD NOS 04/15/2014 Loyd Aguilar Jr, MD Admitting 789.00 ABDOMINAL PAIN-SITE NOS 04/15/2014 Loyd Aguilar Jr, MD Final 789.39 ABD/PELV SWELL-SITE NEC 04/15/2014 Loyd Aguilar Jr, MD Final 790.29 ABNORMAL GLUCOSE NEC 05/11/2014 Matt SKY, Rosie Alfaro A V72.83 EXAM PRE-OPERATIVE NEC Procedures Code Description Performed By Performed On 55.03 PERCU NEPHROSTM W/O Talya Hester MD 04/19/2014 55.04 PERCU NEPHROSTMY W Talya Hester MD 05/20/2014 Results Test Result Range CBC W/DIFF - 12/09/13 16:50 GRANULOCYTE # 25.7 k/cumm 2.0-9.0 MEAN CELL HGB 28.6 pg 27.0-33.0 MEAN CELL HGB CONCENTRATION 32.0 g/dL 32.0-37.0 MEAN CELL VOLUME 89.4 fl 80.0-100.0 MONOCYTE # 1.4 k/cumm 0.1-1.0 MONOCYTE % 5 % 4-6 RED BLOOD CELL 3.67 m/cumm 4.00-6.00 RED CELL DISTRIBUTION WIDTH 13.7 % 11.0- 15.6 WHITE BLOOD CELL 27.1 k/cumm 5.0-10.0 HEMOGLOBIN 10.5 gm/dL 12.0-16.0 HEMATOCRIT 32.8 % 37.0-47.0 PLATELET COUNT 375 k/cumm 150-450 MANUAL DIFF(R) - 12/09/13 16:50 BAND % 10 % 0-10 DIFFERENTIAL MANUAL RBC MORPH NOTED SEGMENTED NEUTROPHIL % 85 % 50-70 METABOLIC PANEL, COMPREHN - 12/09/13 16:50 POTASSIUM 4.1 mmol/L 3.5-5.3 EST GFR (MDRD) 28 mL/min > 59 ANION GAP 10 mmol/L 5-15 GLUCOSE 132 mg/dL 70-99 CALCIUM 9.8 mg/dL 8.5-10.1 BLOOD UREA NITROGEN 32 mg/dL 7-20 CREATININE 1.8 mg/dL 0.6-1.0 SODIUM 139 mmol/L 135-148 CHLORIDE 103 mmol/L 98-110 AST/SGOT 26 Units/L 10-37 ALT/SGPT 35 Units/L < 66 CARBON DIOXIDE 26 mmol/L 21-32 TOTAL PROTEIN 7.3 gm/dL 6.4-8.2 ALBUMIN 2.7 gm/dL 3.4-5.0 BILI TOTAL 0.5 mg/dL 0.0-1.0 ALKALINE PHOSPHATASE TOTAL 202 IU/L 45- 117 URINALYSIS, ROUTINE - 12/09/13 17:23 UA LEUKOCYTE ESTERASE DIPSTICK 2+ NEGATIVE UA NITRITE DIPSTICK NEGATIVE NEGATIVE UA PROTEIN DIPSTICK 3+ NEGATIVE UA GLUCOSE DIPSTICK NEGATIVE NEGATIVE UA KETONE DIPSTICK TRACE NEGATIVE UA UROBILINOGEN DIPSTICK NORMAL NORMAL UA BILIRUBIN DIPSTICK NEGATIVE NEGATIVE UA BLOOD DIPSTICK 4+ NEGATIVE UA BACTERIA 5+ NEGATIVE UA EPITHELIAL CELLS 4+ epi/hpf 0 - 1+ UA MUCUS 5+ NEG TO 1+ UA RBC >100 rbc/hpf 0 - 3 UA VOLUME FOR EXAM 5.0 mL (12mL STD) UA WBC PACKED FIELD wbc/hpf 0 - 5 UA SPECIFIC GRAVITY 1.005 1.015-1.025 UR PH 8.0 5.0-7.0 URINE CULTURE - 12/09/13 17:23 Uncategorized BLOOD CULTURE - 12/09/13 17:45 Uncategorized BLOOD CULTURE - 12/09/13 17:45 Uncategorized RENAL FUNCTION PANEL - 12/10/13 09:08 POTASSIUM 3.9 mmol/L 3.5-5.3 EST GFR (MDRD) 35 mL/min > 59 ANION GAP 8 mmol/L 5-15 GLUCOSE 137 mg/dL 70-99 CALCIUM 9.2 mg/dL 8.5-10.1 BLOOD UREA NITROGEN 33 mg/dL 7-20 CREATININE 1.5 mg/dL 0.6-1.0 SODIUM 140 mmol/L 135-148 CHLORIDE 104 mmol/L 98-110 CARBON DIOXIDE 28 mmol/L 21-32 ALBUMIN 2.6 gm/dL 3.4-5.0 PHOSPHORUS 2.5 mg/dL 2.5-4.9 MAGNESIUM - 12/10/13 09:08 MAGNESIUM 1.9 mg/dL 1.8-2.4 CBC W/MANUAL DIFF - 12/10/13 09:09 MEAN CELL HGB 27.8 pg 27.0-33.0 MEAN CELL HGB CONCENTRATION 30.4 g/dL 32.0-37.0 MEAN CELL VOLUME 91.5 fl 80.0-100.0 RED BLOOD CELL 3.52 m/cumm 4.00-6.00 RED CELL DISTRIBUTION WIDTH 13.8 % 11.0- 15.6 WHITE BLOOD CELL 17.3 k/cumm 5.0-10.0 HEMOGLOBIN 9.8 gm/dL 12.0-16.0 HEMATOCRIT 32.2 % 37.0-47.0 PLATELET COUNT 369 k/cumm 150-400 MANUAL DIFF(O) - 12/10/13 09:09 BAND % 3 % 0-10 GRANULOCYTE # 16.3 k/cumm 2.0-9.0 LYMPHOCYTE # 0.3 k/cumm 1.0-4.0 LYMPHOCYTE % 2 % 20-30 DIFFERENTIAL MANUAL MONOCYTE # 0.7 k/cumm 0.1-1.0 MONOCYTE % 4 % 4-6 RBC MORPH NOTED SEGMENTED NEUTROPHIL % 91 % 50-70 CBC W/DIFF - 12/11/13 04:38 EOSINOPHIL # 0.1 k/cumm 0.1-0.5 EOSINOPHIL % 1 % 2-4 GRANULOCYTE # 9.4 k/cumm 2.0-9.0 GRANULOCYTE % 82 % 50-75 LYMPHOCYTE # 1.1 k/cumm 1.0-4.0 LYMPHOCYTE % 10 % 20-30 MEAN CELL HGB 28.1 pg 27.0-33.0 MEAN CELL HGB CONCENTRATION 31.4 g/dL 32.0-37.0 MEAN CELL VOLUME 89.4 fl 80.0-100.0 MONOCYTE # 0.7 k/cumm 0.1-1.0 MONOCYTE % 7 % 4-6 RED BLOOD CELL 3.10 m/cumm 4.00-6.00 RED CELL DISTRIBUTION WIDTH 14.0 % 11.0- 15.6 WHITE BLOOD CELL 11.4 k/cumm 5.0-10.0 HEMOGLOBIN 8.7 gm/dL 12.0-16.0 HEMATOCRIT 27.7 % 37.0-47.0 PLATELET COUNT 325 k/cumm 150-400 RENAL FUNCTION PANEL - 12/11/13 04:38 POTASSIUM 4.5 mmol/L 3.5-5.3 EST GFR (MDRD) 41 mL/min > 59 ANION GAP 8 mmol/L 5-15 GLUCOSE 110 mg/dL 70-99 CALCIUM 8.9 mg/dL 8.5-10.1 BLOOD UREA NITROGEN 26 mg/dL 7-20 CREATININE 1.3 mg/dL 0.6-1.0 SODIUM 143 mmol/L 135-148 CHLORIDE 109 mmol/L 98-110 CARBON DIOXIDE 26 mmol/L 21-32 ALBUMIN 2.3 gm/dL 3.4-5.0 PHOSPHORUS 2.4 mg/dL 2.5-4.9 MAGNESIUM - 12/11/13 04:38 MAGNESIUM 1.8 mg/dL 1.8-2.4 IRON W/ BINDING CAPACITY - 12/11/13 04:38 IRON SATURATION 4 % SAT 11-46 IRON BINDING CAPACITY, TOTAL 185 mcg/dL 250-450 IRON 8 mcg/dL 35-150 TRANSFERRIN - 12/11/13 04:38 TRANSFERRIN 120 mg/dL 200-360 FERRITIN - 12/11/13 04:38 FERRITIN 185 ng/mL 8-252 BLOOD CULTURE - 12/11/13 07:48 Uncategorized BLOOD CULTURE - 12/11/13 07:48 Uncategorized FOLIC ACID, RBC - 12/11/13 14:25 FOLIC ACID, RBC 924 ng/mL 280-791 FOLATE, HCT 30.0 % CBC W/MANUAL DIFF - 12/12/13 05:31 MEAN CELL HGB 28.0 pg 27.0-33.0 MEAN CELL HGB CONCENTRATION 31.1 g/dL 32.0-37.0 MEAN CELL VOLUME 90.1 fl 80.0-100.0 RED BLOOD CELL 3.14 m/cumm 4.00-6.00 RED CELL DISTRIBUTION WIDTH 13.9 % 11.0- 15.6 WHITE BLOOD CELL 10.3 k/cumm 5.0-10.0 HEMOGLOBIN 8.8 gm/dL 12.0-16.0 HEMATOCRIT 28.3 % 37.0-47.0 PLATELET COUNT 371 k/cumm 150-400 MANUAL DIFF(O) - 12/12/13 05:31 BASOPHIL # 0.2 k/cumm 0.0-0.2 BASOPHIL % 2 % 0-1 BAND % 3 % 0-10 GRANULOCYTE # 9.0 k/cumm 2.0-9.0 LYMPHOCYTE # 0.6 k/cumm 1.0-4.0 LYMPHOCYTE % 6 % 20-30 DIFFERENTIAL MANUAL MONOCYTE # 0.5 k/cumm 0.1-1.0 MONOCYTE % 5 % 4-6 RBC MORPH NOTED SEGMENTED NEUTROPHIL % 84 % 50-70 RENAL FUNCTION PANEL - 12/12/13 05:31 POTASSIUM 4.8 mmol/L 3.5-5.3 EST GFR (MDRD) 41 mL/min > 59 ANION GAP 8 mmol/L 5-15 GLUCOSE 97 mg/dL 70-99 CALCIUM 9.6 mg/dL 8.5-10.1 BLOOD UREA NITROGEN 27 mg/dL 7-20 CREATININE 1.3 mg/dL 0.6-1.0 SODIUM 143 mmol/L 135-148 CHLORIDE 108 mmol/L 98-110 CARBON DIOXIDE 27 mmol/L 21-32 ALBUMIN 2.3 gm/dL 3.4-5.0 PHOSPHORUS 2.9 mg/dL 2.5-4.9 MAGNESIUM - 12/12/13 12:15 MAGNESIUM 2.0 mg/dL 1.8-2.4 CBC W/MANUAL DIFF - 12/13/13 05:52 MEAN CELL HGB 27.4 pg 27.0-33.0 MEAN CELL HGB CONCENTRATION 30.6 g/dL 32.0-37.0 MEAN CELL VOLUME 89.5 fl 80.0-100.0 RED BLOOD CELL 3.43 m/cumm 4.00-6.00 RED CELL DISTRIBUTION WIDTH 13.7 % 11.0- 15.6 WHITE BLOOD CELL 8.9 k/cumm 5.0-10.0 HEMOGLOBIN 9.4 gm/dL 12.0-16.0 HEMATOCRIT 30.7 % 37.0-47.0 PLATELET COUNT 469 k/cumm 150-400 MANUAL DIFF(O) - 12/13/13 05:52 GRANULOCYTE # 7.2 k/cumm 2.0-9.0 LYMPHOCYTE # 1.0 k/cumm 1.0-4.0 LYMPHOCYTE % 11 % 20-30 DIFFERENTIAL MANUAL MONOCYTE # 0.7 k/cumm 0.1-1.0 MONOCYTE % 8 % 4-6 RBC MORPH NOTED SEGMENTED NEUTROPHIL % 81 % 50-70 METABOLIC PANEL, BASIC - 12/13/13 05:52 POTASSIUM 4.7 mmol/L 3.5-5.3 EST GFR (MDRD) 45 mL/min > 59 ANION GAP 8 mmol/L 5-15 GLUCOSE 95 mg/dL 70-99 CALCIUM 9.6 mg/dL 8.5-10.1 BLOOD UREA NITROGEN 22 mg/dL 7-20 CREATININE 1.2 mg/dL 0.6-1.0 SODIUM 140 mmol/L 135-148 CHLORIDE 105 mmol/L 98-110 CARBON DIOXIDE 27 mmol/L 21-32 PROTHROMBIN TIME WITH INR - 04/19/14 15:27 INTERNATIONAL NORMAL RATIO 1.2 0.9-1.1 PROTHROMBIN TIME 13.4 sec 9.3-12.2 PARTIAL THROMBOPLASTIN TIME - 04/19/14 15:27 PARTIAL THROMBOPLASTIN TIME 29 sec 24-36 CBC W/DIFF - 04/19/14 15:27 GRANULOCYTE # 15.0 k/cumm 2.0-9.0 LYMPHOCYTE # 0.3 k/cumm 1.0-4.0 LYMPHOCYTE % 2 % 20-30 MEAN CELL HGB 28.4 pg 27.0-33.0 MEAN CELL HGB CONCENTRATION 32.2 g/dL 32.0-37.0 MEAN CELL VOLUME 88.3 fl 80.0-100.0 MONOCYTE # 0.5 k/cumm 0.1-1.0 MONOCYTE % 3 % 4-6 RED BLOOD CELL 3.41 m/cumm 4.00-6.00 RED CELL DISTRIBUTION WIDTH 14.7 % 11.0- 15.6 TOXIC GRANULATION NOTED WHITE BLOOD CELL 16.0 k/cumm 5.0-10.0 HEMOGLOBIN 9.7 gm/dL 12.0-16.0 HEMATOCRIT 30.1 % 37.0-47.0 PLATELET COUNT 243 k/cumm 150-400 MANUAL DIFF(R) - 04/19/14 15:27 BAND % 15 % 0-10 DIFFERENTIAL MANUAL METAMYELOCYTE % 1 % RBC MORPH NOTED SEGMENTED NEUTROPHIL % 79 % 50-70 URINE CULTURE - 04/20/14 10:00 Microbiology CBC - 05/11/14 11:22 MEAN CELL HGB 28.5 pg 27.0-33.0 MEAN CELL HGB CONCENTRATION 31.7 g/dL 32.0-37.0 MEAN CELL VOLUME 90.2 fl 80.0-100.0 RED BLOOD CELL 3.96 m/cumm 4.00-6.00 RED CELL DISTRIBUTION WIDTH 14.5 % 11.0- 15.6 WHITE BLOOD CELL 6.2 k/cumm 5.0-10.0 HEMOGLOBIN 11.3 gm/dL 12.0-16.0 HEMATOCRIT 35.7 % 37.0-47.0 PLATELET COUNT 341 k/cumm 150-400 METABOLIC PANEL, BASIC - 05/11/14 11:22 POTASSIUM 4.1 mmol/L 3.5-5.3 EST GFR (MDRD) 56 mL/min > 59 ANION GAP 8 mmol/L 5-15 GLUCOSE 97 mg/dL 70-99 CALCIUM 9.5 mg/dL 8.5-10.1 BLOOD UREA NITROGEN 14 mg/dL 7-20 CREATININE 1.0 mg/dL 0.6-1.0 SODIUM 142 mmol/L 135-148 CHLORIDE 106 mmol/L 98-110 CARBON DIOXIDE 28 mmol/L 21-32 PROTHROMBIN TIME WITH INR - 05/11/14 11:22 INTERNATIONAL NORMAL RATIO 1.0 0.9-1.1 PROTHROMBIN TIME 10.6 sec 9.3-12.2 PARTIAL THROMBOPLASTIN TIME - 05/11/14 11:22 PARTIAL THROMBOPLASTIN TIME 31 sec 24-36 CALCULI, ANALYSIS - 05/20/14 14:38 AMMONIUM ACID URATE 02 % () CA OXALATE MONOHYDRATE 20 % () CALCIUM PHOSPHATE 20 % () COLOR Torres () COMPOSITION Note () PLEASE NOTE SPRCS () MG OXANA PHOSPHATE 56 % () NIDUS No Nidus visualized () SIZE FRAGMT mm () URIC ACID 02 % () WEIGHT 2947.0 mg () COMMENT SPRCS () Encounters
--- OUTSIDE RECORDS SUMMARY | 2017-03-13 10:58 | XMS REPORT ---
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 Problem Unspecified anemia 285.9 Active Problem Hematuria, unspecified 599.70 Active Problem Calculus of kidney 592.0 Active Problem Muscular wasting and disuse atrophy, 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 Problem Urinary tract infection, site not specified 599.0 Active Problem Other abnormal blood chemistry 790.6 Active Problem Microscopic hematuria 599.72 Active Problem Sciatica 724.3 Active Problem Chest pain, unspecified 786.50 Active Problem Elevated blood pressure reading without diagnosis of hypertension 796.2 Active Problem Lumbago 724.2 Active Problem Chills (without fever) 780.64 Active Problem 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 Problem Other general symptoms 780.99 Active Medications No Known Medications Results No Known Results Summary Purpose eClinicalWorks Submission
--- OUTSIDE RECORDS SUMMARY | 2017-03-13 10:58 | XMS REPORT ---
Author Lindsey Stroud [facility] eClinicalWorks Address Unknown Phone Unavailable Care Team Providers Care Health Manager Name Role Phone Lindsey Serra CP Unavailable Allergies, Adverse Reactions, Alerts Substance Reaction Event Type Sulfacet-R Info Not Available Drug Allergy Bactrim DS rash Drug Allergy Problems Problem Type Condition ICD-9 Code Onset [...] 790.6 Active Problem Microscopic hematuria 599.72 Active Assessment Calculus of kidney 592.0 Active Problem Sciatica 724.3 Active Assessment Unspecified anemia 285.9 Active Problem Chest pain, unspecified 786.50 Active Problem Elevated blood pressure reading without diagnosis of hypertension 796.2 Active Problem Lumbago 724.2 Active Problem Chills (without fever) 780.64 Active Problem 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 Problem Other general symptoms 780.99 Active Medications Medication Code System Code Instructions Start Date End Date Status Dosage Ferrous [facility] [address]-08 325 mg BID with meals Active 1 tablet [facility]fl[facility] [address]-06 500 MG Orally every 12 hrs MarchApril 19, 2014 Active 1 tablet Fosamax [facility] [address]-83 70 mg once a week Active 1 tablet Joint Support Complex [facility] 667[address] Orally Active as directed Procedures Procedure Coding System Code Date URINE CULTURE/COLONY COUNT CPT-4 38012 April 12, 2014 URINE BACTERIA CULTURE CPT-4 74374 April 12, 2014 URINALYSIS, AUTO, W/O SCOPE CPT-4 44522 April 12, 2014 Office Visit, Est Pt., Level 3 CPT-4 64297 April 12, 2014 Vital Signs Date/Time: April 12, 2014 Weight 130.0 lbs Height 67 in Blood Pressure Diastolic 69 mm Hg Blood Pressure Systolic 118 mm Hg Temperature 98.4 F Cardiac Monitoring Heart Rate 83 /min Results Urinalysis (UA) (GM) PRO(- ) 100 pH(- ) 5.5 BLO(- ) MODERATE SG(- ) >=1.030 KET(- ) NEG NIT(- ) NEG COLOR(- ) YELLOW URO(- ) 2.0 CLARITY(- ) CLOUDY GLU(- ) NEG DOMONIQUE(- ) SMALL NILTON(- ) SMALL CULTURE, URINE, ROUTINE CULTURE, URINE, ROUTINE(- ) SEE NOTE Summary Purpose eClinicalWorks Submission
--- OUTSIDE RECORDS SUMMARY | 2017-03-13 10:58 | XMS REPORT ---
Author Ashli Maldonado Organization [employer] Address Unknown Phone Unavailable Care Team Providers Care Project Financial Analyst Name Role Phone Ashli Rizzo CP Unavailable [...] 724.2 Active Problem 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 Problem Sciatica 724.3 Active Problem Chills [...]
--- OUTSIDE RECORDS SUMMARY | 2017-03-13 10:58 | XMS REPORT ---
Author Ashli Maldonado Organization [employer] Address Unknown Phone Unavailable Care Team Providers Care Template Layout Worker Name Role Phone Ashli Rizzo CP Unavailable Allergies No Known Allergies Problems Problem Type Condition ICD-9 Code Onset Dates Condition Status Problem Elevated blood pressure reading without diagnosis of hypertension 796.2 Active Problem Other general symptoms 780.99 Active Problem Chills (without fever) 780.64 Active Problem Microscopic hematuria 599.72 Active Problem Muscular wasting and disuse atrophy, 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 Problem Other abnormal blood chemistry 790.6 Active Problem 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 Problem Fatigue 780.79 Active Problem Urinary tract infection, site not specified 599.0 Active Problem Abdominal pain, unspecified site 789.00 Active Assessment Abdominal pain, unspecified site 789.00 Active Problem Sciatica 724.3 Active Problem Lumbago 724.2 Active Assessment Microscopic hematuria 599.72 Active Problem 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 Assessment Other abnormal blood chemistry 790.6 Active Problem Chest pain, unspecified 786.50 Active Medications No Known Medications Vital Signs Date/Time: Dec 22, 2013 Weight 123.8 lbs Height 67 inches Blood Pressure Diastolic 80 mm Hg Blood Pressure Systolic 136 mm Hg Temperature 97.8 F Cardiac Monitoring Heart Rate 77 Beats per Minute Results No Known Results Summary Purpose [employer] Submission
--- OUTSIDE RECORDS SUMMARY | 2017-03-13 10:58 | XMS REPORT ---
Author Ashli Maldonado [facility] eClinicalWorks Address Unknown Phone Unavailable Care Team Providers Care Protozoologist Name Role Phone Ashli Rizzo CP Unavailable Allergies, Adverse Reactions, Alerts Substance Reaction Event Type Sulfacet-R Info Not Available Drug Allergy Bactrim DS rash Drug Allergy Problems Problem Type Condition ICD-9 Code Onset Dates Condition Status Assessment Other general symptoms 780.99 Active Problem Sciatica 724.3 Active Assessment Fatigue 780.79 Active Problem Other general symptoms 780.99 Active Problem Chills (without fever) 780.64 Active Problem Fatigue 780.79 Active Problem 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 Problem Lumbago 724.2 Active Problem Elevated blood pressure reading without diagnosis of hypertension 796.2 Active Problem Chest pain, unspecified 786.50 Active Assessment Special screening for malignant neoplasms, intestine, unspecified V76.50 Active Assessment Elevated blood pressure reading without diagnosis of hypertension 796.2 Active Assessment Chills (without fever) 780.64 Active Medications Medication Code System Code Instructions Start Date End Date Status Dosage Cod Liver Oil [facility] [address]-62 Orally Active as directed Celebrex [facility] [address]-50 200 MG Orally Once a day April 15, 2012 Active 1 capsule as needed Joint Support Complex [facility] [address] Orally Active as directed Fosamax [facility] [address]-87 70 MG Orally once per week, take on empty stomach with full glass of water, remain upright for 30 minutes, then may eat June 05, 2012 May 31, 2013 Active 1 tablet Aspirin [facility] [address]-69 81 MG Orally Once a day Aug 25, 2012 Active 1 tablet Procedures Procedure Coding System Code Date ASSAY THYROID STIM HORMONE CPT-4 58407 Aug 18, 2013 BASIC METABOLIC PANEL CPT-4 92081 Aug 18, 2013 COMPLETE CBC W/AUTO DIFF WBC CPT-4 32083 Aug 18, 2013 Office Visit, Est Pt., Level 3 CPT-4 47104 Aug 18, 2013 Vital Signs Date/Time: Aug 18, 2013 Weight 127.2 lbs Height 67 inches Blood Pressure Diastolic 79 mm Hg Blood Pressure Systolic 158 mm Hg Temperature 98.3 F Cardiac Monitoring Heart Rate 70 Beats per Minute Results No Known Results Summary Purpose eClinicalWorks Submission
--- OUTSIDE RECORDS SUMMARY | 2017-03-13 10:58 | XMS REPORT ---
Author Ashli Maldonado Organization eClinicalWorks Address Unknown Phone Unavailable Care Team Providers Care Lumber Sticker Name Role Phone Ashli Rizzo CP Unavailable [...] Active Problem 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 Problem Chest pain, unspecified 786.50 Active [...]
--- OUTSIDE RECORDS SUMMARY | 2017-03-13 10:58 | XMS REPORT ---
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 Problem Elevated blood pressure reading without diagnosis of hypertension 796.2 Active Problem Chest pain, unspecified 786.50 Active Problem Urinary tract infection, site not specified 599.0 Active Problem Abdominal pain, unspecified site 789.00 Active Problem Muscular wasting and disuse atrophy, 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 Problem Other general symptoms 780.99 Active Problem Chills (without fever) 780.64 Active Problem 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 Problem Fatigue 780.79 Active Assessment 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 Assessment Urinary tract infection, site not specified 599.0 Active Assessment Muscular wasting and disuse atrophy, 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 Assessment Abdominal pain, unspecified site 789.00 Active Problem Sciatica 724.3 Active Assessment Fatigue 780.79 Active Problem Lumbago 724.2 Active Medications Medication Code System Code Instructions Start Date End Date Status Dosage Ferrous Sulfate [facility] [address]-30 325 mg BID with meals Active 1 tablet Cephalexin [facility] [address]-85 Dec 09, 2013 Active Unknown Fosamax [facility] [address]-45 70 mg once a week Active 1 tablet Joint Support Complex [facility] [address] Orally Active as directed Procedures Procedure Coding System Code Date URINE CULTURE & SENSITIVITY CPT-4 93053 Dec 22, 2013 COMPLETE CBC W/AUTO DIFF WBC CPT-4 60246 Dec 22, 2013 BASIC METABOLIC PANEL CPT-4 34120 Dec 22, 2013 BLOOD FOLIC ACID SERUM CPT-4 63049 Dec 22, 2013 ASSAY THYROID STIM HORMONE CPT-4 86508 Dec 22, 2013 Office Visit, Est Pt., Level 3 CPT-4 18378 Dec 22, 2013 VITAMIN B-12 CPT-4 83427 Dec 22, 2013 Vital Signs Date/Time: Dec 22, 2013 Weight 123.8 lbs Height 67 inches Blood Pressure Diastolic 80 mm Hg Blood Pressure Systolic 136 mm Hg Temperature 97.8 F Cardiac Monitoring Heart Rate 77 Beats per Minute Results No Known Results Summary Purpose eClinicalWorks Submission
--- OUTSIDE RECORDS SUMMARY | 2017-03-13 10:58 | XMS REPORT ---
Author Ryan Taveras Organization eClinicalWorks Address Unknown Phone Unavailable Care Team Providers Care Sales Project Coordinator Name Role Phone Ryan Bey CP Unavailable Allergies No Known Allergies Problems Problem Type Condition Code Onset Dates Condition Status Problem Abdominal [...] Active Problem 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 Assessment Urinary tract infection, site not specified N39.0 Active Problem Sciatica 724.3 Active Problem Chills (without fever) 780.64 Active Problem Other general symptoms 780.99 Active Problem Chest pain, unspecified 786.50 Active Problem Fatigue 780.79 Active Problem Elevated blood pressure reading without diagnosis of hypertension 796.2 Active Problem 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 [address]-35 50 MG Orally every 6 hours March 15, 2016 March 22, 2016 1 capsule Results No Known Results Summary Purpose eClinicalWorks Submission
--- OUTSIDE RECORDS SUMMARY | 2017-03-13 10:58 | XMS REPORT ---
Author Ashli Maldonado Organization eClinicalWorks Address Unknown Phone Unavailable Care Team Providers Care Truck Engine Technician Name Role Phone Ashli Rizzo CP Unavailable Allergies No Known Allergies Problems Problem Type Condition ICD-9 Code Onset Dates Condition Status Problem Sciatica 724.3 Active Problem Other general symptoms 780.99 Active Problem Chills (without fever) 780.64 Active Problem Fatigue 780.79 Active Problem 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 Problem Lumbago 724.2 Active Problem Elevated blood pressure reading without diagnosis of hypertension 796.2 Active Problem Chest pain, unspecified 786.50 Active Medications No Known Medications Vital Signs Date/Time: Aug 18, 2013 Weight 127.2 lbs Height 67 inches Blood Pressure Diastolic 79 mm Hg Blood Pressure Systolic 158 mm Hg Temperature 98.3 F Cardiac Monitoring Heart Rate 70 Beats per Minute Results No Known Results Summary Purpose eClinicalWorks Submission
--- OUTSIDE RECORDS SUMMARY | 2017-03-13 10:58 | XMS REPORT ---
Author Ashli Maldonado [facility] eClinicalWorks Address Unknown Phone Unavailable Care Team Providers Care Scarfing Machine Operator Name Role Phone Ashli Rizzo CP Unavailable [...] kidney 592.0 Active Problem Sciatica 724.3 Active Problem Chest pain, unspecified 786.50 Active Problem Elevated blood pressure reading without diagnosis of hypertension 796.2 Active Problem Lumbago 724.2 Active Problem Chills (without fever) 780.64 Active Problem 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 Problem Other general symptoms 780.99 Active Medications No Known Medications Results No Known Results Summary Purpose eClinicalWorks Submission
[2017-03-13 12:00] VITALS: BP 150/63; PULSE 79; RESP 27; O2SAT 96
[2017-03-13 14:08] VITALS: PULSE 79; RESP 27; O2SAT 96
[2017-03-13 15:53] VITALS: BP 119/59; PULSE 45; RESP 18; TEMP 98.4; O2SAT 97
--- NOTE | 2017-03-13 16:00 | NUR ---
TELE DR. ALMAGUER AND KERRY PUCKETT, AWARE OF PAUSES IN TELEMETRY.
[2017-03-13 16:04] VITALS: BP 119/59; PULSE 45; RESP 18; TEMP 98.4; O2SAT 97
--- NOTE | 2017-03-13 17:08 | NUR ---
ACTUARIAL INTERN CONTACT DR. ALMAGUER IN ROOM FOR PT EVAL/ASSMT AND TO TALK ABOUT PLAN OF CARE WITH BOTH PT AND PT'S .
--- NOTE | 2017-03-13 18:30 | NUR ---
DISMISSAL WENT OVER WRITTEN DISMISSAL INSTRUCTIONS WITH PT INCLUDING DIET, ACTIVITY/RESTRICTIONS, WOUND CARE, S/SX TO REPORT, F/U APPT. PT VERBALIZED UNDERSTANDING. PT'S PERSONAL BELONGINGS GATHERED INCLUDING CELL PHONE, HOME MEDS. NO SCRIPTS TO BE GIVEN. PT TAKEN OUT OF S.U. PER W/C BY [facility] STAFF TO ER ENTRANCE FOR TRANSPORT HOME BY .
--- NOTE | 2017-03-18 15:00 | NUR ---
ATTEMPTED [facility] FOLLOW UP PHONE CALL #1, NO ANSWER, LEFT VOICE MESSAGE TO RETURN CALL TO CM.
== END 2017-03-13 18:30 | disposition home or self-care (01) | DRG 247 ==
LOC: SRG 10:38 → CATH 10:38 → SRG 03-13 10:29
PROVIDERS: ADMIT Internal Medicine Cardiovascular Disease; ATTEND Internal Medicine Cardiovascular Disease
PROC: 027034Z Dilation of Coronary Artery, One Artery with Drug-eluting Intraluminal Device, Percutaneous Approach (ICD-10-PCS; principal; 2017-03-11)
DX: I25.10 Atherosclerotic heart disease of native coronary artery without angina pectoris (principal); I49.5 Sick sinus syndrome; I70.203 Unspecified atherosclerosis of native arteries of extremities, bilateral legs; E78.2 Mixed hyperlipidemia; I42.9 Cardiomyopathy, unspecified; M19.91 Primary osteoarthritis, unspecified site; Z79.82 Long term (current) use of aspirin
CPT/HCPCS: 36415; 80048; 80061; 80076; 85025; 93005